=== PATIENT | female | born 1955 | race Caucasian/White ===

== ENCOUNTER 2022-02-02 12:57 | Emergency (ER) | payer OTHER ==
[~2022-02-02] VITALS: Ht 165.1 cm; Wt 93.0 kg
[2022-02-02] MEDS ORDERED: ONDANSETRON HCL 4 MG ORAL DISINTEGRATING TAB PO ONE (13:15)
[2022-02-02] MEDS ORDERED: LORAZEPAM 1 MG TAB PO ONE (13:15)
[2022-02-02] MEDS ORDERED: ONDANSETRON ODT4 MG PO (13:30)
[2022-02-02] MEDS ORDERED: ZANAFLEX4 MG PO (13:30)
[2022-02-02] MEDS ORDERED: PREDNISONE50 MG PO (13:30)
[2022-02-02] MEDS ORDERED: DEXAMETHASONE SOD PHOS INJ 4 MG/ML SDV ONE (13:53)
[2022-02-02] MEDS ORDERED: ONDANSETRON HCL 4 MG ORAL DISINTEGRATING TAB ONE (13:53)
[2022-02-02] MEDS ORDERED: LORAZEPAM 0.5 MG TAB ONE (13:54)
[2022-02-02] MEDS ORDERED: DEXAMETHASONE SOD PHOS INJ 4 MG/ML SDV IM ONE (14:00)
== END 2022-02-02 14:31 | disposition home or self-care (01) ==
LOC: FSED 13:04
DX: M54.41 Lumbago with sciatica, right side (principal); G72.49 Other inflammatory and immune myopathies, not elsewhere classified; X50.1XXA Overexertion from prolonged static or awkward postures, initial encounter; I10 Essential (primary) hypertension
CPT/HCPCS: 96372; 99282; J1100; Q0162